=== PATIENT | male | born 1955 | race American Indian/Alaskan Native ===

== ENCOUNTER 2016-09-30 07:11 | Day surgery (SDC) | payer MEDICAID ==
[2016-09-30] MEDS ORDERED: NACL 0.9% 250ML 250 ML IV ONE (07:36)
[2016-09-30] MEDS ORDERED: TYLENOL PO ONE (07:37)
[2016-09-30] MEDS ORDERED: BENADRYL IV ONE (07:37)
[2016-09-30 08:04] LABS: Hemoglobin 6.6 gm/dl (11.8-15.2)
[2016-09-30 08:24] LABS: Hematocrit 18.4 % (35.5-45.6)
[2016-09-30] MEDS ORDERED: NEURONTIN PO SCH (10:00)
[2016-09-30 12:09] VITALS: BP 130/67
== END 2016-09-30 13:05 | disposition home or self-care (01) ==
LOC: OPU 07:11 → EDSTATUS 07:30 → OPU 13:05
PROVIDERS: ATTEND Internal Medicine Hematology & Oncology
DX: D64.9 Anemia, unspecified (principal); Z87.891 Personal history of nicotine dependence
CPT/HCPCS: 36415; 36430; 85018; 86850; 86900; 86901; 86920; 96374; J1200; J7050; P9016